=== PATIENT | male | born 1985 | race Hispanic/Latino ===

== ENCOUNTER 2017-04-01 17:39 | Emergency (ER) | payer SELFPAY ==
[2017-04-01] MEDS ORDERED: TETANUS/DIPHTHERIA TOXOID [ADULT] 0.5 ML VIAL IM ONE (18:45)
== END 2017-04-01 19:00 | disposition home or self-care (01) ==
LOC: EDH 17:39
DX: S61.213A Laceration without foreign body of left middle finger without damage to nail, initial encounter (principal); W26.8XXA Contact with other sharp object(s), not elsewhere classified, initial encounter; Y93.89 Activity, other specified; Y92.89 Other specified places as the place of occurrence of the external cause; Y99.8 Other external cause status
CPT/HCPCS: 90471; 90714

== ENCOUNTER 2024-05-10 10:58 | Emergency (ER) | payer SELFPAY ==
[~2024-05-10] VITALS: Ht 160 cm; Wt 87.5 kg
--- NOTE | 2024-05-10 11:20 | ERN ---
ED Note History of Present Illness Stated Complaint: FOOT PAIN Chief Complaint: FOOT INJURY/PAIN Time Seen by MD: 10:59 Time Seen by Midlevel: 11:05 Dictation: 38-year-old male with a history of hypertrophic cardiomyopathy coming in complaining of bilateral foot pain. 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 Patient also states they were steel toed boots which states or very heavy for his feet. Denies having any recent traumas, no fevers, nausea or vomiting. Allergies: Coded Allergies: No Known Drug Allergies (Verified Allergy, 06/08/12) Past Medical History Past Medical History: No Pertinent History Surgical History: None Review of System Dictation Constitutional: Negative for fever,chills, and weight loss Eyes: Negative for injury, pain,redness, and discharge ENT: Negative for injury,pain or swelling Cardiovascular: Negative for chest pain, palpitations, and edema Respiratory: Negative for shortness of breath, cough, and wheezing, Abdomen/GI: Negative for abdominal pain, nausea, vomiting, diarrhea, and constipation Back: Negative for injury and pain : Negative for injury, bleeding and discharge MS/Extremity: Negative for injury and deformity complaining of bilateral foot pain Skin: Negative for rash, and discoloration Neuro: Negative for headache, weakness, numbness, tingling, and seizure Psych: Negative for suicide ideation, homicidal ideation, and hallucinations Review of Systems: was completed Initial Vital Sign VS Vital Signs Date Time Temp Pulse Resp B/P (MAP) Pulse Ox O2 Delivery O2 Flow Rate FiO2 05/10/24 10:59 98.2 81 16 105/67 100 Room Air 0 Physical Exam Dictation General: awake, alert, NAD Head/Face: Normocephalic, atraumatic Eyes: PERRL, EOMI, vision at baseline ENT: oral cavity clear, TMs clear, no signs of infection Neck: Trachea midline, supple, no nuchal rigidity Cardiovascular: RRR, normal S1/S2, No MRGs, no JVD Respiratory: CTAB, no respiratory distress, No rales or wheezes Abdomen: Soft, non-tender, non-distended, normal bowel sounds, no guarding or rebound. Skin: Warm, dry, normal turgor, no rash MS/Extremity: Pulses equal, no cyanosis, neurovascular intact, FROM Neuro: COAx4, GCS 15, strength 5/5, CN 2-12 intact, normal cerebellar exam, normal gait, Psych: Normal behavior, mood, and affect normal ED Course ED Course Orders Procedure Category Date Status Time Ketorolac PHA 05/10/24 Complete Tromethamine 15mg/Ml 11:10 Acetaminophen 325 Tab PHA 05/10/24 Complete (Tylenol 325mg Tab 11:10 Current Medications Medications (Trade) Dose Ordered Sig/Adolfo Route PRN Reason Start Time Stop Time Status Last Admin Dose Admin Acetaminophen (TYLenol 325MG TAB) 650 mg ONCE STAT PO 05/10/24 11:10 05/10/24 11:11 DC 05/10/24 11:31 Ketorolac Tromethamine (toRADol) 15 mg ONCE STAT IM 05/10/24 11:10 05/10/24 11:11 DC 05/10/24 11:32 Vital Signs Date Time Temp Pulse Resp B/P (MAP) Pulse Ox O2 Delivery O2 Flow Rate FiO2 05/10/24 10:59 98.2 81 16 105/67 100 Room Air 0 Medical Decision Making MDM MDM: 38-year-old male with a history of hypertrophic cardiomyopathy coming in complaining of bilateral foot pain. 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 Patient also states they were steel toed boots which states or very heavy for his feet. Denies having any recent traumas, no fevers, nausea or vomiting. On physical exam there is no swelling, redness, streaking or any signs of infection process. Differential diagnosis: Tendinitis, gout Rationale: Tests considered and ordered secondary to shared decision making include: Previous outside records reviewed: Old ER visits. Risk of complication and/or morbidity or mortality of patient management: None Medications-Per medication reconciliation Need for hospitalization: Patient does not meet criteria for hospitalization. Need for emergency major/minor surgery: No There are no social concerns with this patient. Prescription drug management Prescriptions will include symptomatic care Patient's prior external medical records from other ER visits were reviewed by me as indicated. Prior testing and results from previous visits were reviewed. Prior tests were taken into account with medical decision making and resource utilization, independent historian/historians were used to obtain complete medical history. I independently interpreted the test that were performed, results were reviewed by me and considered findings on radiology if ordered. Medical management and examination interpretation discussions were had by me with other qualified healthcare professionals as indicated for the patient's care. DX & DISP Disposition: Discharge Departure Impression: Primary Impression: Tendonitis of ankle or foot Condition: Stable Scripts Ketorolac Tromethamine (Ketorolac Tromethamine) 10 Mg Tablet 1 TAB PO Q6HPRN PRN for pain for 5 Days, #20 TAB 0 Refills Prov: CHRISTINE CANAS NP 05/10/24 Additional Instructions: rest after your shift, lift legs to decrease swelling. You can add tylenol to the medication that I prescribed. Follow up with a PCP in 1-2 days. Referrals: GRISELDA STUBBS MD (PCP) Time of Disposition: 11:53 I have reviewed the case, and I agree with, Diagnosis and Plan CHRISTINE CANAS NP May 10, 2024 11:20
[2024-05-10] MEDS: acetaMINOPHEN 325 MG TAB PO STA (11:31)
[2024-05-10] MEDS: ketOROlac 15MG/ML VIAL (15MG/ML) IM STA (11:32)
[2024-05-10] MEDS ORDERED: KETO10TA2 PO (11:53)
[2024-05-10 12:11] VITALS: BP 110/69; PULSE 80; RESP 16; TEMP 98.3; O2SAT 100
== END 2024-05-10 12:13 | disposition home or self-care (01) ==
LOC: EDH 10:58
DX: M77.50 Other enthesopathy of unspecified foot and ankle (principal)
CPT/HCPCS: 99283; 96372; J1885

== ENCOUNTER 2024-06-14 10:50 | Emergency (ER) | payer SELFPAY ==
[~2024-06-14] VITALS: Ht 160 cm; Wt 85.3 kg
[~2024-06-14 10:50] MED LIST: KETO10TA2 PO
--- NOTE | 2024-06-14 10:56 | ERN ---
ED Note History of Present Illness Stated Complaint: LT HIP PAIN Chief Complaint: Hip Pain/Injury Time Seen by MD: 10:53 Dictation: PATIENT IS A 39-YEAR-OLD MALE HERE WITH HIS WITH COMPLAINTS OF HAVING ONSET OF LEFT LATERAL LUMBOSACRAL PAIN THAT RADIATES DOWN HIS POSTERIOR LEFT LEG ONSET WAS LAST MONDAY. STATES IT STARTED SPONTANEOUSLY NO TRAUMA NO FALLS NO PRIOR INJURIES ACCORDING TO PATIENT. STATES HE WAS ABLE TO WORK MONDAY AND MONDAY HOWEVER IT GOT WORSE AND IS NOW INTERFERING WITH HIS JOB. NO CHANGE IN BOWEL OR BLADDER FUNCTION PATIENT THEN VOLUNTEERED THAT HE HAD BEEN TREATED WITH PHYSICAL THERAPY FOR THE SAME KIND OF INJURY AND A HERNIATED L4 SEVERAL YEARS AGO HOWEVER CAN NOT RECALL THE NAME OF THE DOCTOR WHO ORDERED IT. PATIENT STATES HE TOOK E XCEDRIN TWO DAYS AGO DID NOT HELP Allergies: Coded Allergies: No Known Drug Allergies (Verified Allergy, 06/08/12) Home Meds Active Scripts Cyclobenzaprine HCl (Cyclobenzaprine HCl) 10 Mg Tablet, 1 TAB PO TID for muscle spasms for 10 Days, #30 TAB 0 Refills Prov:DALLAS BOWLES NP 06/14/24 Ibuprofen (Ibuprofen 800 mg Tab) 800 Mg Tab, 800 MG PO Q8H PRN for fever or pain, #30 TAB 0 Refills Prov:DALLAS BOWLES NP 06/14/24 Prednisone (Prednisone) 20 Mg Tablet, 1 TAB PO AD for 6 Days, #14 TAB 0 Refills TAKE 1 TAB BY MOUTH THREE TIMES PER DAY X3 DAYS, THEN TAKE 1 TAB BY MOUTH TWICE A DAY X2 DAYS, THEN TAKE 1 TAB BY MOUTH ONCE A DAY X1 DAY. TAKE WITH FOOD Prov:DALLAS BOWLES NP 06/14/24 Ketorolac Tromethamine (Ketorolac Tromethamine) 10 Mg Tablet, 1 TAB PO Q6HPRN PRN for pain for 5 Days, #20 TAB 0 Refills Prov:CHRISTINE CANAS LINT CLEANER 05/10/24 Past Medical History Past Medical History: No Pertinent History Surgical History: None RN Note Reviewed/Agreed w/PFSH: Yes Review of System Dictation CONSTITUTIONAL: NEGATIVE EXCEPT FOR HPI HEAD/FACE: NEGATIVE EXCEPT FOR HPI EENT: NEGATIVE EXCEPT FOR HPI RESPIRATORY: NEGATIVE EXCEPT FOR HPI GASTROINTESTINAL/ABDOMINAL: NEGATIVE EXCEPT FOR HPI GENITOURINARY: NEGATIVE EXCEPT FOR HPI MUSCULOSKELETAL: NEGATIVE EXCEPT FOR HPI LEFT LATERAL LUMBOSACRAL PAIN WITH SCIATICA INTEGUMENTARY: NEGATIVE EXCEPT FOR HPI NEUROLOGICAL/PSYCH: NEGATIVE EXCEPT FOR HPI HEMATOLOGIC/LYMPHATIC: NEGATIVE EXCEPT FOR HPI ALL SYSTEMS NEGATIVE, EXCEPT NOTED ABOVE. 13 POINT REVIEW OF SYSTEMS ASSESSED AND ALL NEGATIVE EXCEPT FOR ABOVE. Initial Vital Sign VS Vital Signs Date Time Temp Pulse Resp B/P (MAP) Pulse Ox O2 Delivery O2 Flow Rate FiO2 06/14/24 10:53 97.0 74 18 115/69 97 Room Air 0 06/14/24 11:54 21 Physical Exam Dictation VITAL SIGNS REVIEWED GENERAL APPEARANCE: ALERT, ORIENTED X 3, MODERATE ACUTE DISTRESS, WELL DEVELOPED, NOURISHED. HEAD AND FACE: NON-TRAUMATIC. EYES: PERRL, PINK CONJUNCTIVAS, EYELID NO TRAUMA, ANTERIOR CHAMBER WITH ARCUS SENILIS. EARS: PINNAS INTACT AND NO SIGNS OF TRAUMA OR ERYTHEMA EAR CANALS CLEAR AND NO DISCHARGE TM NO ERYTHEMA NOSE: NO DISCHARGE, NO BLEEDING. OROPHARYNX: MOUTH NORMAL, TONGUE PINK, PHARYNX CLEAR,NO ERYTHEMA, TONSILS NO EXUDATES, NO ABSCESSES NOTED, MUCOUS MEMBRANE MOIST NECK: SUPPLE, NON-TENDER, NO THYROMEGALY, NO MASSES, NO JVD, NO BRUITS BREAST:DEFERRED CHEST:NO TENDERNESS, NO CREPITUS, NO PARADOXICAL MOVEMENT, NO RETRACTIONS LUNGS:CLEAR, WELL-VENTILATED, SYMMETRIC, NO RALES, NO WHEEZING, NO RHONCHI, NO STRIDOR, GOOD BREATH SOUNDS BILATERALLY HEART: REGULAR RATE, REGULAR RHYTHM, NO MURMUR, NO GALLOPS VASCULAR: NO PERIPHERAL EDEMA, ABDOMEN: SOFT, POSITIVE BOWEL SOUNDS, NONDISTENDED, NO GUARDING, NONTENDER, NO REBOUND, NO MASSES NO HEPATOMEGALY, NO SPLENOMEGALY, NO MONAE'S SIGN, NO HERNIAS. RECTAL: DEFERRED GENITAL: DEFERRED NEUROLOGICAL: NORMAL SPEECH, MOTOR FUNCTION INTACT, SENSORY FUNCTION INTACT MUSCULOSKELETAL: NECK NONTENDER, FULL RANGE OF MOTION, DIFFUSE LEFT LUMBOSACRAL TENDERNESS WITH PALPATION, FULL RANGE OF MOTION, NO STEP-OFFS POSITIVE STRAIGHT LEG RAISE 10 LEFT EXTREMITIES: NONTENDER, FULL RANGE OF MOTION SKIN: COLOR PINK, DRY, NO TURGOR, NO RASH, NO LACERATIONS, NO ABRASIONS, NO CONTUSIONS. LYMPHATIC: DEFERRED Results (Laboratory/Radiology) Laboratory/Radiology 1116/LUMBAR X-RAY NEGATIVE Labs Reviewed?: Yes ED Course ED Course Orders Procedure Category Date Status Time Lumbar Spine 2-3vws RAD 06/14/24 Resulted 10:53 Cyclobenzaprine Hcl PHA 06/14/24 Complete (Cyclobenzaprine Hcl 11:00 Dexamethasone 4mg/Ml PHA 06/14/24 Complete 1ml Vial (Dexametha 11:00 Ibuprofen 800 Mg Tab PHA 06/14/24 Complete (Motrin) 11:00 Current Medications Medications (Trade) Dose Ordered Sig/Adolfo Route PRN Reason Start Time Stop Time Status Last Admin Dose Admin Cyclobenzaprine HCl (Cyclobenzaprine HCl) 10 mg ONCE ONCE PO 06/14/24 11:00 06/14/24 11:01 DC 06/14/24 11:03 Dexamethasone Sodium Phosphate (dexaMETHasone 4MG/ML 1ML VIAL) 8 mg ONCE ONCE IM 06/14/24 11:00 06/14/24 11:01 DC 06/14/24 11:03 Ibuprofen (moTRIN) 800 mg ONCE ONCE PO 06/14/24 11:00 06/14/24 11:01 DC 06/14/24 11:04 Vital Signs Date Time Temp Pulse Resp B/P (MAP) Pulse Ox O2 Delivery O2 Flow Rate FiO2 06/14/24 11:54 97.9 74 18 109/69 99 Room Air* 0 21 06/14/24 10:53 97.0 74 18 115/69 97 Room Air 0 1118/PATIENT STATES PAIN IS IMPROVING AFTER TREATMENT WITH MEDICATIONS. HE WILL BE WRITTEN OUT OF WORK PLACED ON PREDNISONE IBUPROFEN AND FLEXERIL, TOLD NO LIFTING GREATER THAN 10 LB UNTIL CLEARED BY HIS PRIMARY CARE DOCTOR AND GIVEN A LIST OF THE LOCAL DOCTORS ADDITIONALLY HE WAS Medical Decision Making MDM MEDICAL DISCHARGE MAKING BASED ON EMPIRIC TREATMENT FOR ACUTE LUMBAR PAIN WITH SCIATICA LUMBAR FILM WAS PERFORMED, NEGATIVE PATIENT STATES HE IS FEELING BETTER HOWEVER MADE AWARE TO NO LIFTING GREATER THAN 10 LB GIVEN A LIST OF LOCAL PRIMARY CARE DOCTOR'S AND WE WILL NEED FOLLOW UP AND MANAGEMENT TO INCLUDE PROBABLE MRI DX & DISP Disposition: Discharge Departure Impression: Primary Impression: Acute exacerbation of chronic low back pain Additional Impression: Back pain of lumbosacral region with sciatica Condition: Stable Scripts Cyclobenzaprine HCl (Cyclobenzaprine HCl) 10 Mg Tablet 1 TAB PO TID for muscle spasms for 10 Days, #30 TAB 0 Refills Prov: DALLAS BOWLES LINT CLEANER 06/14/24 Ibuprofen (Ibuprofen 800 mg Tab) 800 Mg Tab 800 MG PO Q8H PRN for fever or pain, #30 TAB 0 Refills Prov: DALLAS BOWLES NP 06/14/24 Prednisone (Prednisone) 20 Mg Tablet 1 TAB PO AD for 6 Days, #14 TAB 0 Refills TAKE 1 TAB BY MOUTH THREE TIMES PER DAY X3 DAYS, THEN TAKE 1 TAB BY MOUTH TWICE A DAY X2 DAYS, THEN TAKE 1 TAB BY MOUTH ONCE A DAY X1 DAY. TAKE WITH FOOD Prov: DALLAS BOWLES NP 06/14/24 Additional Instructions: FOLLOW-UP WITH PRIMARY CARE PROVIDER IN 1 TO 2 DAYS. TAKE MEDICATIONS DIRECTED HERE IN THE EMERGENCY ROOM. OKAY TO CONTINUE HOME MEDICATIONS UNLESS OTHERWISE DISCUSSED DURING YOUR VISIT IN THE EMERGENCY ROOM TODAY. RETURN TO YOUR NEAREST EMERGENCY ROOM IF SYMPTOMS WORSEN OR IF THERE IS NO IMPROVEMENT. CALL 911 IF YOU NEED IMMEDIATE ASSISTANCE. TAKE TYLENOL OR MOTRIN OVE [id number] NEEDED AND IF NO CONTRAINDICATIONS ARE PRESENT. INCREASE ORAL HYDRATION. A WOUND CULTURE OR URINE CULTURE WAS ORDERED HERE IN THE EMERGENCY ROOM DEPARTMENT PLEASE FOLLOW-UP WITH PRIMARY CARE PROVIDER AND ADVISE THEM TO GET REPEAT PORTS FROM OUR FACILITY. IF YOU HAD ANY SHAWANDA WRAP/SPLINTS THAT WERE APPLIED HERE, PLEASE DO NOT REMOVE THEM UNTIL YOU SEE YOUR PRIMARY CARE OR SPECIALTY. TAKE PREDNISONE WITH FOOD DIRECTED UNTIL GONE. TAKE IBUPROFEN AND FLEXERIL EVERY 8 HOURS FOR THE NEXT TWO DAYS WITH FOOD. NO LIFTING GREATER THAN 10 LB UNTIL CLEARED BY YOUR PRIMARY CARE DOCTOR, FOLLOW UP WITH ONE OF THE DOCTORS ON THE LIST PROVIDED YOU IN THE NEXT 1-2 DAYS. Referrals: NONE (PCP) Time of Disposition: 11:19 I have reviewed the case, and I agree with, Diagnosis and Plan DALLAS BOWLES NP Jun 14, 2024 10:56 KETAN SALGUERO DO Jun 14, 2024 12:59
[2024-06-14] MEDS: dexaMETHasone SOD PHOSPHATE 4 MG/ML 1ML VIAL IM ONE (11:03)
[2024-06-14] MEDS: CYCLOBENZAPRINE HCL 10 MG TABLET PO ONE (11:03)
[2024-06-14] MEDS: ibuPROFEN 800 MG TAB PO ONE (11:04)
--- NOTE | 2024-06-14 11:18 | HMCIMG ---
LUMBAR SPINE RADIOGRAPHS - 2-3 VIEWS INDICATION: Acute left lateral lumbar pain with sciatica COMPARISON: None FINDINGS: AP, lateral, and coned-down lateral views. Normal lordotic curvature of the lumbar spine is maintained. Five nonrib-bearing lumbar vertebral bodies are noted. No acute fracture or subluxation identified. Vertebral body heights are well-maintained. Disc spaces are well-preserved. IMPRESSION: No fracture or subluxation identified.
[2024-06-14] MEDS ORDERED: CYCL-309 PO (11:21)
[2024-06-14] MEDS ORDERED: PRED20TA3 PO (11:21)
[2024-06-14] MEDS ORDERED: IBUP-2077 PO (11:21)
[2024-06-14 11:54] VITALS: BP 109/69; PULSE 74; RESP 18; TEMP 97.8; O2SAT 99
== END 2024-06-14 11:56 | disposition home or self-care (01) ==
LOC: EDH 10:50
DX: G89.29 Other chronic pain (principal); M54.42 Lumbago with sciatica, left side; Z79.899 Other long term (current) drug therapy
CPT/HCPCS: 99283; 72100; 96372; J1100

== ENCOUNTER 2024-06-30 17:10 | Emergency (ER) | payer BC ==
[~2024-06-30] VITALS: Ht 160 cm; Wt 83.9 kg
[~2024-06-30 17:10] MED LIST changes: +CYCL-309 PO; +IBUP-2077 PO; +PRED20TA3 PO
[2024-06-30] MEDS: ketOROlac 60 MG VIAL (30MG/ML) IM ONE (17:35)
[2024-06-30] MEDS: TRIAMCINOLONE ACETONIDE 40 MG/ML 1ML VIAL IM ONE (17:35)
[2024-06-30] MEDS: ORPHENADRINE 60MG/2ML IM ONE (17:35)
--- NOTE | 2024-06-30 18:28 | ERN ---
ED Note History of Present Illness Stated Complaint: LOWER BACK PAIN Chief Complaint: Low Back Pain/Injury Time Seen by MD: 17:13 Time Seen by Midlevel: 17:13 Dictation: The patient is a 39-year-old male with a history of cardiomyopathy, ACD who presents to the emergency department with complaints of LEs lower back pain in buttocks pain that radiates down to his left leg onset June 08. Patient denies any trauma. Denies any urinary or fecal incontinence. Patient was seen here earlier this month and had a lumbar x-ray which was unremarkable. Allergies: Coded Allergies: No Known Drug Allergies (Verified Allergy, 06/08/12) Home Meds Active Scripts Cyclobenzaprine HCl (Cyclobenzaprine HCl) 10 Mg Tablet, 1 TAB PO TID for muscle spasms for 10 Days, #30 TAB 0 Refills Prov:DALLAS BOWLES FURNITURE CRATER 06/14/24 Ibuprofen (Ibuprofen 800 mg Tab) 800 Mg Tab, 800 MG PO Q8H PRN for fever or pain, #30 TAB 0 Refills Prov:DALLAS BOWLES NP 06/14/24 Prednisone (Prednisone) 20 Mg Tablet, 1 TAB PO AD for 6 Days, #14 TAB 0 Refills TAKE 1 TAB BY MOUTH THREE TIMES PER DAY X3 DAYS, THEN TAKE 1 TAB BY MOUTH TWICE A DAY X2 DAYS, THEN TAKE 1 TAB BY MOUTH ONCE A DAY X1 DAY. TAKE WITH FOOD Prov:DALLAS BOWLES NP 06/14/24 Ketorolac Tromethamine (Ketorolac Tromethamine) 10 Mg Tablet, 1 TAB PO Q6HPRN PRN for pain for 5 Days, #20 TAB 0 Refills Prov:CHRISTINE CANAS NP 05/10/24 Past Medical History Past Medical History: Heart Disease Surgical History: Pacer/AICWolfgang RN Note Reviewed/Agreed w/PFSH: Yes Review of System Dictation Constitutional: Negative for fever,chills, and weight loss Eyes: Negative for injury, pain,redness, and discharge ENT: Negative for injury,pain or swelling Cardiovascular: Negative for chest pain, palpitations, and edema Respiratory: Negative for shortness of breath, cough, and wheezing, Abdomen/GI: Negative for abdominal pain, nausea, vomiting, diarrhea, and constipation Back: Negative for injury and pain positive for low back pain : Negative for injury, bleeding and discharge MS/Extremity: Negative for injury and deformity Skin: Negative for rash, and discoloration Neuro: Negative for headache, weakness, numbness, tingling, and seizure Psych: Negative for suicide ideation, homicidal ideation, and hallucinations Initial Vital Sign VS Vital Signs Date Time Temp Pulse Resp B/P (MAP) Pulse Ox O2 Delivery O2 Flow Rate FiO2 06/30/24 17:27 97.7 85 18 124/81 97 Room Air 0 06/30/24 17:35 21 Physical Exam Dictation Vital Signs reviewed General Appearance: Alert, oriented x 3, no acute distress, well developed, nourished. Head and Face: non-traumatic. Eyes: PERRL, pink conjunctivas, eyelid no trauma, anterior chamber with arcus senilis. Ears: Pinnas intact and no signs of trauma or erythema ear canals clear and no discharge TM no erythema Nose: No discharge, no bleeding. Oropharynx: Mouth normal, tongue pink. pharynx clear,no erythema, tonsils no exudates, no abscesses noted, mucous membrane moist Neck: Supple, non-tender, no thyromegaly, no masses, no JVD, no bruits Breast:Deferred Chest:No tenderness, no crepitus, no paradoxical movement, no retractions Lungs:Clear, well-ventilated, symmetric, no rales, no wheezing, no rhonchi, no stridor, good breath sounds bilaterally Heart: Regular rate, regular rhythm, no murmur, no gallops Vascular: no peripheral edema, dorsalis pedis 2+ bilaterally Abdomen: Soft, positive bowel sounds, nondistended, no guarding, nontender, no rebound, no masses no hepatomegaly, no splenomegaly, no Reyes's sign, no hernias. Rectal: Deferred Genital: Deferred Neurological: Normal speech, motor function intact, sensory function intact Musculoskeletal: Neck nontender, full range of motion, back nontender, full range of motion, Extremities: nontender, full range of motion , the buttocks tenderness Skin: Color pink, dry, no turgor, no rash, no lacerations, no abrasions, no contusions. Lymphatic: Deferred Results (Laboratory/Radiology) Labs Reviewed?: Yes ED Course ED Course Orders Procedure Category Date Status Time Orphenadrine Citrate PHA 06/30/24 Complete (Norflex) 17:30 Ketorolac 60mg/2ml PHA 06/30/24 Complete (Toradol 60mg/2ml) 17:30 Triamcinolone Acet PHA 06/30/24 Complete 40mg/Ml 1ml (Kenalog 17:30 Current Medications Medications (Trade) Dose Ordered Sig/Adolfo Route PRN Reason Start Time Stop Time Status Last Admin Dose Admin Ketorolac Tromethamine (toRADol 60MG/ 2ML) 60 mg ONCE ONCE IM 06/30/24 17:30 06/30/24 17:31 DC 06/30/24 17:35 Orphenadrine Citrate (Norflex) 60 mg ONCE ONCE IM 06/30/24 17:30 06/30/24 17:31 DC 06/30/24 17:35 Triamcinolone Acetonide (Kenalog 40) 40 mg ONCE ONCE IM 06/30/24 17:30 06/30/24 17:31 DC 06/30/24 17:35 Vital Signs Date Time Temp Pulse Resp B/P (MAP) Pulse Ox O2 Delivery O2 Flow Rate FiO2 06/30/24 18:00 98.4 78 12 138/86 98 Room Air* 0 21 06/30/24 17:35 98.1 84 16 136/82 98 Room Air* 0 21 06/30/24 17:27 97.7 85 18 124/81 97 Room Air 0 Medical Decision Making MDM The patient is a 39-year-old male with a history of cardiomyopathy, ACD who presents to the emergency department with complaints of LEs lower back pain in buttocks pain that radiates down to his left leg onset June 08. Patient denies any trauma. Denies any urinary or fecal incontinence. Patient was seen here earlier this month and had a lumbar x-ray which was unremarkable. Patient year old who is distress. Ambulatory. neurovascularly intact will be discharged to follow up with PCP. Differential diagnosis: Sciatic nerve pain, back strain, piriformis syndrome Need for hospitalization: Patient does not meet criteria for hospitalization. There are no social concerns with this patient. DX & DISP Disposition: Discharge Departure Impression: Primary Impression: Back pain of lumbosacral region with sciatica Condition: Stable Scripts Lidocaine (Lidocaine) 4 % Adh..patch 1 PATCH TP DAILY for 10 Days, #10 PATCH 0 Refills Prov: IZABELA GAN IMMIGRATION PATROL INSPECTOR 06/30/24 Additional Instructions: FOLLOW-UP WITH PRIMARY CARE PROVIDER IN 1 TO 2 DAYS. TAKE MEDICATIONS DIRECTED HERE IN THE EMERGENCY ROOM. OKAY TO CONTINUE HOME MEDICATIONS UNLESS OTHERWISE DISCUSSED DURING YOUR VISIT IN THE EMERGENCY ROOM TODAY. RETURN TO YOUR NEAREST EMERGENCY ROOM IF SYMPTOMS WORSEN OR IF THERE IS NO IMPROVEMENT. CALL 911 IF YOU NEED IMMEDIATE ASSISTANCE. TAKE TYLENOL OR MOTRIN [id number] NEEDED AND IF NO CONTRAINDICATIONS ARE PRESENT. INCREASE ORAL HYDRATION. A WOUND CULTURE OR URINE CULTURE WAS ORDERED HERE IN THE EMERGENCY ROOM DEPARTMENT PLEASE FOLLOW-UP WITH PRIMARY CARE PROVIDER AND ADVISE THEM TO GET REPEAT PORTS FROM OUR FACILITY. IF YOU HAD ANY SHAWANDA WRAP/SPLINTS THAT WERE APPLIED HERE, PLEASE DO NOT REMOVE THEM UNTIL YOU SEE YOUR PRIMARY CARE OR SPECIALTY. Referrals: SELF,REFERRAL (PCP) Time of Disposition: 18:48 I have reviewed the case, and I agree with, Diagnosis and Plan IZABELA GAN IMMIGRATION PATROL INSPECTOR Jun 30, 2024 18:28
[2024-06-30] MEDS ORDERED: LIDO1ADH82 TP (18:49)
[2024-06-30 18:50] VITALS: BP 136/82; PULSE 80; RESP 12; TEMP 98; O2SAT 97
== END 2024-06-30 18:54 | disposition home or self-care (01) ==
LOC: EDH 17:10
DX: M54.42 Lumbago with sciatica, left side (principal); Z95.810 Presence of automatic (implantable) cardiac defibrillator; Z79.899 Other long term (current) drug therapy
CPT/HCPCS: 99284; 96372 ×3; J1885; J3301; J2360

== ENCOUNTER 2024-11-09 03:03 | Emergency (ER) | payer SELFPAY ==
[~2024-11-09] VITALS: Ht 160 cm; Wt 86.2 kg
[~2024-11-09 03:03] MED LIST changes: +LIDO1ADH82 TP
[2024-11-09 03:05] VITALS: TEMP 98.7
--- NOTE | 2024-11-09 04:15 | ERN ---
ED Note History of Present Illness Stated Complaint: PACER/DEF " BEEPING" Chief Complaint: Other Problems Time Seen by MD: 03:35 Dictation: This is a 39-year-old male with known history of hypertrophic cardiomyopathy came into the ER as he started hearing a beeping noise from his pacemaker/AICD. No chest pain pressure PND orthopnea. His cardiac device was placed in 2013 at which time he was diagnosed with hypertrophic cardiomyopathy. He stated that he has been doing fairly well however had had financial difficulties and lack of insurance and hence he has not followed up with Cardiology on a regular basis. He stated that he heard a beep again transiently at 1:10 a.m. and his was concerned and hence they came into the ER for further evaluation. In the past once such situation patient had end of life of the battery and it had to be changed emergently. Temperature 98.7 pulse 103 respirations 20 blood pressure 136/91 with a pulse oximetry of 98% on room air Patient indicated that he was working for [email or web address] and sustained an injury at work and is currently on workman's comp Allergies: Coded Allergies: No Known Drug Allergies (Verified Allergy, 06/08/12) Home Meds Active Scripts Lidocaine (Lidocaine) 4 % Adh..patch, 1 PATCH TP DAILY for 10 Days, #10 PATCH 0 Refills Prov:IZABELA GANP 06/30/24 Cyclobenzaprine HCl (Cyclobenzaprine HCl) 10 Mg Tablet, 1 TAB PO TID for muscle spasms for 10 Days, #30 TAB 0 Refills Prov:DALLAS BOWLES [employer] MARK[employer]ING [employer]ER 06/14/24 Ibuprofen (Ibuprofen 800 mg Tab) 800 Mg Tab, 800 MG PO Q8H PRN for fever or pain, #30 TAB 0 Refills Prov:DALLAS BOWLES NP 06/14/24 Prednisone (Prednisone) 20 Mg Tablet, 1 TAB PO AD for 6 Days, #14 TAB 0 Refills TAKE 1 TAB BY MOUTH THREE TIMES PER DAY X3 DAYS, THEN TAKE 1 TAB BY MOUTH TWICE A DAY X2 DAYS, THEN TAKE 1 TAB BY MOUTH ONCE A DAY X1 DAY. TAKE WITH FOOD Prov:DALLAS BOWLES NP 06/14/24 Ketorolac Tromethamine (Ketorolac Tromethamine) 10 Mg Tablet, 1 TAB PO Q6HPRN PRN for pain for 5 Days, #20 TAB 0 Refills Prov:CHRISTINE CANAS BUSINESS AND MARKETING TEACHER 05/10/24 Past Medical History Past Medical History: Heart Disease, Other Additional Past Medical Hx: HYPERTROPHIC CARDIOMYOPATHY Surgical History: Pacer/AICD Surgical History Other: RICHARD MARIE RN Note Reviewed/Agreed w/PFSH: Yes Review of System Dictation Constitutional: Negative for fever,chills, and weight loss Eyes: Negative for injury, pain,redness, and discharge ENT: Negative for injury,pain or swelling Cardiovascular: Negative for chest pain, palpitations, and edema-cardiac device alarming as a beep Respiratory: Negative for shortness of breath, cough, and wheezing, Abdomen/GI: Negative for abdominal pain, nausea, vomiting, diarrhea, and constipation Back: Negative for injury and pain : Negative for injury, bleeding and discharge MS/Extremity: Negative for injury and deformity Skin: Negative for rash, and discoloration Neuro: Negative for headache, weakness, numbness, tingling, and seizure Psych: Negative for suicide ideation, homicidal ideation, and hallucinations Initial Vital Sign VS Vital Signs Date Time Temp Pulse Resp B/P (MAP) Pulse Ox O2 Delivery O2 Flow Rate FiO2 11/09/24 03:05 98.8 103 20 136/91 98 Room Air 11/09/24 03:12 0 21 Physical Exam Dictation General: awake, alert, NAD Head/Face: Normocephalic, atraumatic Eyes: PERRL, EOMI, vision at baseline ENT: oral cavity clear, TMs clear, no signs of infection Neck: Trachea midline, supple, no nuchal rigidity Cardiovascular: RRR, normal S1/S2, No MRGs, no JVD left subclavian area cardiac device in place with some old healed scars Respiratory: CTAB, no respiratory distress, No rales or wheezes Abdomen: Soft, non-tender, non-distended, normal bowel sounds, no guarding or rebound. Skin: Warm, dry, normal turgor, no rash MS/Extremity: Pulses equal, no cyanosis, neurovascular intact, FROM Neuro: COAx4, GCS 15, strength 5/5, CN 2-12 intact, normal cerebellar exam, normal gait, Psych: Normal behavior, mood, and affect normal Extremities-trace edema without any palpable cords, Homans sign is negative Results (Laboratory/Radiology) Laboratory/Radiology Laboratory Tests Test 11/09/24 04:10 White Blood Count 8.6 K/uL (4.8-10.8) Red Blood Count 5.16 MIL/uL (4.50-6.20) Hemoglobin 15.8 g/dL (14.0-18.0) Hematocrit 46.5 % (42-54) Mean Corpuscular Volume 90.1 fL (79-99) Mean Corpuscular Hemoglobin 30.6 pg (27.0-33.0) Mean Corpuscular Hemoglobin Concent 34.0 g/dL (32.0-36.0) Red Cell Distribution Width 13.1 % (11.0-15.5) Platelet Count 114 K/uL (130-400) L Mean Platelet Volume 12.8 fL (7.5-10.5) H Immature Granulocyte % (Auto) 0.2 % (0-1) Neutrophils (%) (Auto) 63.9 % (40.0-77.0) Lymphocytes (%) (Auto) 24.6 % (21.0-51.0) Monocytes (%) (Auto) 9.4 % (3.0-13.0) Eosinophils (%) (Auto) 1.2 % (0.0-8.0) Basophils (%) (Auto) 0.7 % (0.0-5.0) Neutrophils # (Auto) 5.5 K/uL (1.8-7.7) Lymphocytes # (Auto) 2.1 K/uL (1.0-4.8) Monocytes # (Auto) 0.8 K/uL (0.1-1.0) Eosinophils # (Auto) 0.10 K/uL (0.00-0.70) Basophils # (Auto) 0.06 K/uL (0.00-0.20) Absolute Immature Granulocyte (auto 0.02 K/uL (0-1) Nucleated Red Blood Cells 0.0 % (0.0-0.19) Sodium Level 141 mmol/L (136-145) Potassium Level 3.7 mmol/L (3.5-5.1) Chloride Level 108 mmol/L (101-111) Carbon Dioxide Level 27 mmol/L (21-32) Blood Urea Nitrogen 11 mg/dL (7-18) Creatinine 0.9 mg/dL (0.5-1.3) Glomerular Filtration Rate Calc 113 mL/min (>90) Random Glucose 95 mg/dL (70-105) Total Calcium 11.3 mg/dL (8.5-10.1) H Total Creatine Kinase 87 U/L (21-232) # Troponin I High Sensitivity 65.9 ng/L (4-75) Labs Reviewed?: Yes ED Course ED Course Orders Procedure Category Date Status Time Cardiac Panel LAB 11/09/24 Complete 03:46 Cbc With Differential LAB 11/09/24 Complete 03:46 Basic Metabolic Panel LAB 11/09/24 Complete 03:46 Chest 1vw RAD 11/09/24 Resulted 03:46 12 Lead Ekg Tracing- EKG 11/09/24 Complete Technical 03:19 Vital Signs Date Time Temp Pulse Resp B/P (MAP) Pulse Ox O2 Delivery O2 Flow Rate FiO2 11/09/24 06:38 88 22 117/70 98 Room Air* 0 21 11/09/24 05:01 89 22 113/71 98 Room Air* 0 21 11/09/24 03:12 97 22 121/74 98 Room Air* 0 21 11/09/24 03:05 98.8 103 20 136/91 98 Room Air We will perform diagnostic labs, advanced imaging and administer medications according to the patient's complaint. Once the results are available, will review and personally interpreted the labs to rule out any acute life-threatenin g emergency the trach require immediate intervention and treatment. I will then re-evaluate the patient after treatment and diagnostic exams have return to determine whether the patient requires any further testing, can safely be discharged home or need further admission to hospital for additional treatment and evaluation. Labs reviewed 5:15 a.m. Carma contacted for interrogation of the device . 6:40 a.m. discussed with [employer] sales representative who indicated that the interrogation revealed good battery life for another 6-8 months. Updated patient and spouse on labs EKG and chest x-ray findings. I also discussed the interrogation details which are very reassuring at this time. Patient and spouse stated that they would like to follow up with Cardiology as outpatient. Medical Decision Making MDM MDM: Differential diagnosis: Rationale: Tests considered and ordered secondary to shared decision making in clude: Previous outside records reviewed: Old ER visits. Risk of complication and/or morbidity or mortality of patient management: None Medications-Per medication reconciliation Need for hospitalization: Patient does not meet criteria for hospitalization. Need for emergency major/minor surgery: No There are no social concerns with this patient. Prescription drug management Prescriptions will include symptomatic care Patient's prior external medical records from other ER visits were reviewed by me as indicated. Prior testing and results from previous visits were reviewed. Prior tests were taken into account with medical decision making and resource utilization, independent historian/historians were used to obtain complete medical history. I independently interpreted the test that were performed, results were reviewed by me and considered findings on radiology if ordered. Medical management and examination interpretation discussions were had by me with other qualified healthcare professionals as indicated for the patient's care. Problem List Problem List: (1) Pacemaker battery depletion (2) Presence of combination internal cardiac defibrillator (ICD) and pacemaker (3) Familial hypertrophic cardiomyopathy DX & DISP Disposition: Discharge Departure Impression: Primary Impression: Pacemaker battery depletion Additional Impressions: Presence of combination internal cardiac defibrillator (ICD) and pacemaker, Familial hypertrophic cardiomyopathy Condition: Stable Additional Instructions: Patient and the caregiver have been informed of all the diagnostic tests and the imaging conducted during the today's visit to the emergency room and has verbalized understanding of the results I have personally reviewed and interpreted all diagnostic exams performed here in the ER today as well as the vital signs documented by the nursing staff. The patient is now being discharged to home and should follow up with the primary care physician or the specialist as directed by the ER staff. Follow-up with primary care provider in 1 to 2 days. Take medications as directed here in the emergency room. Okay to continue home medications unless otherwise discussed during your visit in the emergency room today. Return to your nearest emergency room if symptoms worsen or if there is no improvement. Call 911 if you need immediate assistance. Take Tylenol or Motrin [id number] as needed and if no contraindications are present. Increase oral hydration. A wound culture or urine culture was ordered here in the emergency room department please follow-up with primary care provider and advise them to get repeat ports from our facility. If you had any Will wrap/splints that were applied here, please do not remove them until you see your primary care or specialty. [facility] contact number--[phone] , Interrogation revealed that patient still has months of battery life left and patient is not currently at the end of battery life. Patient and spouse felt relieved and decided to follow up with Dr. Hammer's clinic Monday or Monday. Referrals: TREY BARBER MD (PCP) SILVINA FREEMAN MD Nov 09, 2024 04:14
[2024-11-09 04:20] LABS: IMMATURE GRANULOCYTE ABSOLUTE 0.02 K/uL (0-1); NUCLEATED RED BLOOD CELLS 0.0 % (0.0-0.19); PLATELET COUNT (AUTO) 114 K/uL (130-400); RED BLOOD CELL COUNT(AUTO) 5.16 MIL/uL (4.50-6.20); RED CELL DISTRIBUTION WIDTH 13.1 % (11.0-15.5); WHITE BLOOD COUNT (AUTO) 8.6 K/uL (4.8-10.8)
[2024-11-09 04:26] LABS: CREATININE 0.9 mg/dL (0.5-1.3); GLOMERULAR FILTR. RATE CALC 113.0 mL/min (>90); GLUCOSE,RANDOM 95.0 mg/dL (70-105); SODIUM SERUM 141.0 mmol/L (136-145); UREA NITROGEN, BLOOD 11.0 mg/dL (7-18)
[2024-11-09 04:34] LABS: CREATINE KINASE, TOTAL 87.0 U/L (21-232)
--- NOTE | 2024-11-09 04:50 | HMCIMG ---
EXAM: CR Chest, 1 view CLINICAL HISTORY: Pacemaker defibrillator beeping. COMPARISON: Chest radiograph dated 02/08/2014. FINDINGS: The lungs show no infiltrates or other acute findings. No pleural effusion or pneumothorax. The cardiomediastinal silhouette is within normal limits. Left-sided cardiac pacemaker device is in place; the leads are unremarkable. No acute osseous abnormality. IMPRESSION: No acute cardiopulmonary process is evident. Left-sided cardiac pacemaker device is in place; the leads are unremarkable. No interval changes. /[place]
--- NOTE | 2024-11-09 05:09 | NUR ---
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
[2024-11-09 06:38] VITALS: BP 117/70; PULSE 88; RESP 22; O2SAT 98
--- NOTE | 2024-11-09 06:43 | EKG ---
[facility] Test Date: 2024-11-09 Test Time: 03:19:58 Pat Name: AXEL GONZALEZ Department: [facility] Room: Gender: [employer] Specialist: [phone] : 1985 Requested By: SILVINA FREEMAN Order Number: [id number] Reading MD: Sharon Fritz Measurements Intervals [place] Rate: 97 P: 43 VT: 186 QRS: 28 QRSD: 89 T: 73 QT: 331 QTc: 420 Interpretive Statements Sinus rhythm No previous ECG available for comparison Electronically Signed On 11-09-2024 16:47:50 CDT by Sharon Fritz Please click the below link to view image of tracing.
== END 2024-11-09 06:57 | disposition home or self-care (01) ==
LOC: EDH 03:03
DX: T82.199A Other mechanical complication of unspecified cardiac device, initial encounter (principal); I42.2 Other hypertrophic cardiomyopathy; Z95.810 Presence of automatic (implantable) cardiac defibrillator; Y82.8 Other medical devices associated with adverse incidents; Y92.89 Other specified places as the place of occurrence of the external cause
CPT/HCPCS: 36415; 71045; 80048; 82550; 84484; 85025; 93005; 99285